=== PATIENT | male | born 1965 | race Caucasian/White ===

== ENCOUNTER → 2023-06-18 | Outpatient (CLI) | payer OTHER, SELFPAY ==
[2023-06-18 12:22] LABS: Absolute Lymphocyte Count 0.82 X10^3/uL (0.83-4.51); Absolute Neutrophil Count 1.9 X10^3/uL (2.0-7.7); Basophil# 0.03 X10^3/uL; Basophil% 0.9 % (0-1); Eosinophil# 0.13 X10^3/uL; Hematocrit 39.9 % (40-54); Hemoglobin 13.9 g/dL (13.0-16.5); Lymphocyte # 0.82 X10^3/ul (0.83-4.51); Lymphocyte % 25.2 % (19-41); Mean Corp Hgb Conc 34.8 g/dL (32-36); Mean Corpuscular Hgb 31.7 pg (27.0-32.0); Mean Corpuscular Volume 90.9 fL (80-94); Mean Platelet Vol. 8.7 fl (6.2-12.0); Monocyte# 0.38 X10^3/uL; Monocyte% 11.7 % (0-10); NRBC Flagged by Analyzer 0 % (0-5); Neutrophil # 1.88 X10^3/uL (2.7-7.7); Neutrophil % 57.9 % (47-70); Platelet Count 216 K/mm3 (150-450); RBC Distribution Width CV 12.6 % (11.6-14.6); Red Blood Count 4.39 M/mm3 (4.6-6.2); White Blood Count 3.3 K/mm3 (4.4-11.0)
[2023-06-18 12:36] LABS: ALB/GLOB Ratio 1.3 RATIO (0.9-2.4); AST(SGOT) 12 U/L (15-37); Alanine Aminotransfer ALT/SGPT 17 U/L (16-61); Alkaline Phosphatase 81 U/L (45-117); Anion Gap 4 (5-15); BUN 20 mg/dL (7-18); BUN/Creat Ratio 15.5 RATIO (10-20); Calcium,Total 8.4 mg/dL (8.5-10.1); Chloride 108 mmol/L (98-107); Cholesterol 185 mg/dL (200); Creatinine, Serum 1.29 mg/dL (0.70-1.30); EST Glomerular Filtration Rate 61 mL/min (>60); Est Glom Filt Rate - Afr Amer 74 mL/min (>60); Glucose 104 mg/dL (74-106); High Density Lipoprotein 41 mg/dL; Potassium 4.1 mmol/L (3.5-5.1); Sodium Level 141 mmol/L (136-145); Triglycerides 86 mg/dL; Very Low Density Lipoprotein 17 mg/dL (5-40)
== END | disposition home or self-care (01) ==
LOC: BIMLAB 08:02
PROVIDERS: PCP Internal Medicine; Referring Provider Internal Medicine; Visit Provider Internal Medicine
DX: Z00.00 Encounter for general adult medical examination without abnormal findings (principal); Z13.6 Encounter for screening for cardiovascular disorders
CPT/HCPCS: 36415; 80053; 80061; 85025

== ENCOUNTER 2023-08-13 07:14 | Day surgery (SDC) | payer OTHER, SELFPAY ==
[2023-08-13 07:38] VITALS: BP 130/85; PULSE 57; RESP 16; TEMP 36.6; O2SAT 99; BMI 25.2
[2023-08-13] MEDS: Lactated Ringers 1,000 ML 15 ML IV (07:45)
--- NOTE | 2023-08-13 09:02 | PCM.HP.BLA ---
History and Physical Date of Admission: 08/13/23 Intake Vital Signs 06/18/2307:29 06/30/2308:23 Height 5 ft 10 in 5 ft 10 in Weight: 178 lb 4 oz 187 lb BMI 25.5 26.8 BP 128/56 H 148/89 H Blood Pressure Location Rt brachial Rt brachial Position Sitting Sitting Respiration 18 16 Pulse 55 L 62 Pulse Source Monitor Monitor Temp 96.0 F L 96.8 F L Temp Source Temporal Pulse Oximetry (%) 98 Oxygen Delivery Method room air Intake Visit Reasons: HEMORRHOIDS Chief Complaint: HEMORRHOIDS Allergies Seasonal Allergies: Uncoded Allergy (Mild, Verified 06/30/23 08:24) runny nose Medications cetirizine 5 mg tablet 5 mg PO DAILY PRN 06/18/23 [History Confirmed 06/30/23] fluticasone propionate 50 mcg/actuation nasal spray,suspension (Flonase Allergy Relief) 1 spray intranasal DAILY #16 grams 06/18/23 [Rx Confirmed 06/30/23] PFSH Surgical History No pertinent past surgical history Family History Father Heart diseaseGrandfather Heart disease Social History household members: spouse current occupational status: employed current occupation: excavation, family business Smoking Status: Never smoker Smokeless tobacco user: chewing tobacco Electronic Cigarette Use: not used alcohol intake: current alcohol intake frequency: holidays/special occasions only details: occasional beer substance use type: does not use what type of physical activity do you participate in: walking do you feel safe at home: Yes HPI HPI HPI: Patient is a 57-year-old male here with prolapsing hemorrhoids. He reports that every time he has a bowel movement they stay out and they are hard to push back in. He is not having any bleeding. He has discomfort when they are out. He reports that he had colonoscopy within the last 6 months that showed these large hemorrhoids as well and his GI doctor recommended coming to see a surgeon. ROS General General: No weight change, appetite, fatigue, colon cancer, breast cancer or weakness HEENT HEENT: No difficulty swallowing, eye injury, eye surgery, swollen glands or hoarseness Endo Endocrine: No thyroid disease, diabetes mellitus, thyroid cancer, Hair loss, heat intolerance or cold intolerance Skin Skin: No rash or changing moles Breast Breast: No left breast lump, right breast lump, nipple discharge, breast pain, abnormal mammogram, abnormal US or breast enlargement Musc Musculoskeletal: No back problems, arthritis, rheumatoid arthritis, gout or joint pain Cardio Cardiovascular: No murmur, pacemaker, heart disease, atrial fibrillation, high blood pressure, heart attack, heart stent, palpitations, shortness of breat with exertion or chest pain Psych Psychiatric: No depression, anxiety or hearing voices Resp Respiratory: No shortness of breath, No sleep apnea, No cough, No COPD, No asthma, No emphysema and No wheezing Gastro Gastrointestinal: No abdominal pain, No nausea or vomiting, No diarrhea, No constipation, No blood in stool, No acid reflux, Yes hemorrhoids, No ulcers, No gallbladder problem and No black,tarry stools Samuel Hematologic: No blood thinners, No blood disorders, No bleeding, No anemia and No blood clots Neuro Neurologic: No system reviewed and no additional complaints, except as documented, No as per HPI, No abnormal gait, No abnormal hearing, No abnormal movements, No abnormal speech, No behavioral changes, No burning sensations, No confusion, No convulsions, No disequilibrium, No dizziness, No localized weakness, No frequent falls, No headache(s), No lack of coordination, No loss of vision, No memory loss, No numbness, No other visual disturbances, No radicular pain, No restless legs, No sensory deficit, No syncope, No tingling, No tremor(s), No weakness and No other Exam Const General: cooperative Orientation: alert and oriented x3 HENMT Head: normal to inspection Neck Neck: normal visual inspection and full ROM Chest Chest palpation & inspection: normal inspection of the chest Resp Effort & Inspection: normal respiratory effort Auscultation: clear to auscultation bilaterally Cardio Rate: regular rate Rhythm: regular rhythm GI Inspection: non-distended Palpation: soft and nontender Rectal Exam: normal sphincter tone and hemorrhoids Skin General: no rashes or lesions noted Neuro General: patient alert and patient oriented x3 Extrem General: full ROM Psych Appearance: grossly normal Mental Status: mental status grossly normal Assessment and Plan Assessment and Plan (1) Hemorrhoids: Qualifiers: Hemorrhoid type: third degree Qualified Code(s): K64.2 - Third degree hemorrhoids Plan: Patient reports he has very large hemorrhoids that prolapse with bowel movements. He says he is only having 2 bowel movements a week. He says they are soft and he does strain to have bowel movements. I explained that increasing liquid intake as well as using stool softeners may help. The patient is likely having hemorrhoids from constipation. I explained a hemorrhoidectomy to the patient as well. I will perform an exam under anesthesia and try to differentiate between prolapse and prolapsed hemorrhoids. If the patient does have prolapsing hemorrhoids I will perform a hemorrhoidectomy. I discussed the procedure in detail as well as the risks of bleeding, infection, sphincter tone loss. Patient understands the risks and is willing to proceed. Sahil Aviles MD Pager: [facility] [address] [place] [address], [address] [place] [phone] Office: I have examined the patient and the H&P has been reviewed. There are no clinical changes since date of exam.
--- NOTE | 2023-08-13 09:15 | HEM_PTH ---
PATIENT: RAFAELA TIDWELL LOC: [facility] U#:[id number] AGE/SX: 58/M ROOM: RE08/13/[address]: Dr. Sahil Aviles MD : 1965 BED: DIS: 08/13/2023 SPEC #: [id number] RECD: 08/13/23 13:46 STATUS: ROBYN REKarina #: [id number] VICENTE: 08/13/23 09:[address]: Sahil Aviles DEPT: SURGICAL PATHOLOGY RECD BY: Анна Cisneros ENTERED: 08/14/23 07:34 SP TYPE: HEMORRHOID OTHR DR: Dr. Rubina Colin MD Tissues: HEMORRHOIDS Procedures: Surgery Specimen Level III HEADER OPERATION: Hemorrhoidectomy PRE-OP DIAGNOSIS: Hemorrhoids TISSUE SUBMITTED: Hemorrhoids MICROSCOPIC DIAGNOSIS Hemorrhoids, hemorrhoidectomy: Submucosal vascular ectasia and thrombosis (hemorrhoidal tissue). AM:amadou 08/17/2023 MICROSCOPIC DESCRIPTION Slides are reviewed. GROSS DESCRIPTION Received in fixative is one container labeled with the patient's name and designated hemorrhoids. The specimen consists of two pieces of congested and hemorrhagic mucosal tissue measuring in aggregate 2.5 x 1.5 x 1.0 cm. The larger piece is serially sectioned and the smaller piece is bisected and reveal congested and hemorrhagic cut surfaces. Coding Support Specialist sections are submitted in one cassette. / SJ:amadou 08/14/2023 TC:5 CPT: 91683
[2023-08-13] MEDS: Cefotetan 2 GM in 0.9% NS 100 ML IV (09:37)
[2023-08-13] MEDS: Bupivacaine Mpf 0.5% 30 ML VIAL (09:53)
[2023-08-13] MEDS: Dibucaine 30 GM Tube 1 APPLIC (10:00)
--- NOTE | 2023-08-13 10:23 | OP.PCM_ITS ---
Report of Operation Date of Procedure: 08/13/23 Pre-Operative Diagnosis: Prolapsed hemorrhoids Post-Operative Diagnosis: Same Surgery/Procedure Performed:: Exam under anesthesia with hemorrhoidectomy x2 Type of Anesthesia: General/Regional Specimen's removed: Left lateral hemorrhoidal column and right anterior hemorrhoidal column Estimated Blood Loss (mL): 10 Description of Procedure: Patient was brought back to the operating room and general anesthesia was induced. Patient was thus placed in a prone jackknife position. The gluteal cheeks were taped open. The perineal area was prepped and draped. A well- lubricated finger was used to perform a rectal exam and then a retractor was placed into the rectum. Patient had large hemorrhoids and a 3 column with sti gmata of bleeding. Using harmonic handpiece the left lateral hemorrhoid was removed from the muscular surface of the anus. The mucosa was then reapproximated using a running 3-0 Vicryl suture. Next in the right anterior column the hemorrhoid was removed using harmonic and the mucosa was reapproximated using a running 3 OV lock suture. The posterior hemorrhoid was not addressed due to fear of stricture. The area was suctioned and irrigated and then injected with local anesthetic. A Gelfoam was rolled and coated with Dibucaine and placed into the rectum and left there. Dressing was applied. Patient tolerated the procedure well was brought to PACU in stable condition. Admit VTE Documentation VTE Mechan Device Prophylaxis: SCD's
--- NOTE | 2023-08-13 10:27 | DCINST_ITS ---
Discharge Instructions Diet Discharge Diet: Light diet - advance as tolerated Activity Discharge Activity: Return to Normal Activity, May Not Drive (while you are taking narcotic pain medications. Do not drive, work with heavy equipment or sign legal documents for 24 hours after your surgery.), May Shower and May Take a Tub Bath May resume sexual activity in: No Restrictions Lifting Restrictions: 15 lbs for 1 week Additional Activity Instructions:: Be aware that pain medications may cause nausea. You should typically eat light foods as you take your pain medications. Pain medications may also cause constipation. If you have difficulty with this please discuss with your doctor. Dressing / Incision Call your doctor if you observe: Uncontrolled pain Additional Dressing/Incision Instructions:: Leave the operative bandage on for 2 days. If a local anesthetic plug was placed in the anal area, try not to expel for [address]ucaine ointment on the perianal area as needed. Sitz baths twice daily and after bowel movements. Follow Up Care Please Follow Up With: Sahil Aviles MD When: Please call to schedule 2 week follow up appointment. [phone] Test Results: Test results from this visit will be discussed in further detail at your follow- up appointment, if applicable. Discharge Plan Admission Attending Provider: Sahil Aviles Primary Care Provider: Rubina Colin Instructions Additional Instructions / Restrictions: Alternate ibuprofen and Tylenol. Use oxycodone for pain as needed Discharge Orders/Prescriptions Prescriptions: New docusate sodium [DOK] 100 mg capsule 100 mg PO BID Qty: 20 0RF oxycodone 5 mg tablet 5 - 10 mg PO Q6H PRN (Reason: pain) 7 Days Qty: 40 0RF No Action cetirizine 5 mg tablet 5 mg PO DAILY PRN (Reason: allergy symptoms) fluticasone propionate [Flonase Allergy Relief] 50 mcg/actuation spray,suspension 1 spray intranasal DAILY Qty: 16 2RF Rx Instructions: administer into each nostril Referrals / Follow Up: Rubina Colin MD [Primary Care Provider] - Disposition Disposition (needs filled in before D/C Order can be placed): Home, Self Care
[2023-08-13 10:30] VITALS: BP 114/94; BP 130/85; PULSE 72; RESP 16; TEMP 36.2; O2SAT 100
[2023-08-13 10:45] VITALS: BP 130/85; BP 133/93; PULSE 72; RESP 16; O2SAT 100
[2023-08-13 11:00] VITALS: BP 130/85; BP 135/88; PULSE 59; RESP 16; TEMP 36.2; O2SAT 99
[2023-08-13 11:34] VITALS: BP 130/85
[2023-08-13 12:03] VITALS: BP 130/85; BP 143/94; PULSE 53; RESP 16; TEMP 36.3; O2SAT 98
== END 2023-08-13 12:14 | disposition home or self-care (01) ==
LOC: SDC 07:16 → AC 07:17
PROVIDERS: PCP Internal Medicine; Referring Provider Surgery; Visit Provider Surgery
PROC: (CPT 46260; principal; 2023-08-13 09:00)
DX: K64.2 Third degree hemorrhoids (principal); F17.220 Nicotine dependence, chewing tobacco, uncomplicated
CPT/HCPCS: 46260; 00902; 88304; J2405